=== PATIENT | female | born 1945 | race Caucasian/White ===

== ENCOUNTER → 2017-03-14 | Outpatient (CLI) | payer MEDICARE ==
[~2017-03-14] MED LIST: AMARYL2 MG PO; ASA CHILDREN'S81 MG PO; ASCORBIC ACID250 MG PO; COZAAR DPS25 MG PO; DESYREL-DPS50 MG PO; GLUCOPHAGE1000 MG PO; HYDRODIURIL-DPS25 MG PO; LASIX DPS20 MG PO; LIPITOR DPS10 MG PO; MICRO-K DPS10 MEQ PO; OMEGA-3 DPS1000 MG PO; PROTONIX40 MG PO; REQUIP1 MG PO; SYNTHROID75 MCG PO; TAMIFLU75 MG PO; TENORMIN DPS50 MG PO; THERAPEUTIC MUL1 TAB PO; TYLENOL DPS325 MG PO; ZOLOFT DPS50 MG PO
== END | disposition home or self-care (01) ==
DX: Z12.31 Encounter for screening mammogram for malignant neoplasm of breast (principal)